=== PATIENT | female | born 1975 | race Caucasian/White ===

== ENCOUNTER 2020-05-12 07:34 | Outpatient (CLI) | payer OTHER, SELFPAY ==
--- NOTE | ~2020-05-12 | US_ITS ---
EXAMINATION: US right upper quadrant EXAM DATE: 05/12/2020 08:02 INDICATION: Abdominal fullness. Right upper quadrant pain. TECHNIQUE: Multiple grayscale and Doppler images of the abdomen right upper quadrant were obtained (b y a technologist who performed the scan) and subsequently reviewed. Comparison is made to prior exami nation from 02/15/2010. FINDINGS: The pancreatic head and body are normal in appearance. The pancreatic tail is not visualized. There is echogenic liver parenchyma, hepatic steatosis. There are no focal liver lesions identified. Th ere is no evidence of intrahepatic biliary duct dilation. Portal venous flow was seen in the hepatop edal, normal direction and has normal Doppler waveform. No right-sided hydronephrosis. Common bile duct measures 4 mm, which is normal. The gallbladder fossa is unremarkable. IMPRESSION: Hepatic steatosis. Reviewed, dictated and finalized at location A. IMPRESSION: Hepatic steatosis.
== END 2020-05-12 07:35 | disposition home or self-care (01) ==
LOC: ANHIMG 07:36
PROVIDERS: PCP Internal Medicine; Visit Provider Internal Medicine
DX: R19.8 Other specified symptoms and signs involving the digestive system and abdomen (principal); K76.0 Fatty (change of) liver, not elsewhere classified
CPT/HCPCS: 76705

== ENCOUNTER 2020-07-30 08:18 | Outpatient (NON) | payer OTHER, SELFPAY ==
[2020-07-30 23:24] LABS: SARS-CoV-2 RNA PCR Negative
== END 2020-07-30 08:19 ==
LOC: ANHCOVIDDT 08:19
PROVIDERS: PCP Internal Medicine; Visit Provider Internal Medicine
DX: Z20.828 Contact with and (suspected) exposure to other viral communicable diseases (principal); R09.89 Other specified symptoms and signs involving the circulatory and respiratory systems
CPT/HCPCS: 87635; C9803; U0003

== ENCOUNTER 2021-06-04 01:57 | Day surgery (SDC) | payer OTHER, SELFPAY ==
[2021-05-24 15:21] VITALS: BMI 40.6
[2021-06-04 08:21] VITALS: BP 127/65; PULSE 67; RESP 18; TEMP 36.1; O2SAT 99
--- NOTE | 2021-06-04 08:30 | WPDANESEPPF ---
Anes - Initial Pre Proc Eval Procedure: Operation Date: 06/04/21 09:00 Proposed Procedures p Screening Colonoscopy - Cameron Bob MD Date/Time: 06/04/21 08:30 Surgeon: Cameron Bob MD Pre Op Diagnosis: family hx of colon ca Patient Data Age: 46 Gender: F Height: 1.6 m Weight: 104 kg Last Vital Signs Temp 97 F L 06/04/21 08:21 Pulse 67 06/04/21 08:21 Resp 18 06/04/21 08:21 BP 127/65 06/04/21 08:21 Pulse Ox 99 06/04/21 08:21 Allergies Allergy/AdvReac Type Severity Reaction Status Date / Time adhesive Allergy Mild Rash Verified 06/04/21 08:19 Home Medications Medication Instructions Recorded Confirmed Type levocetirizine 5 mg tablet 5 mg PO DAILY 11/12/19 05/24/21 History venlafaxine 150 mg 150 mg PO DAILY #30 cap 01/28/21 05/24/21 Rx capsule,extended release 24 hr zolpidem 10 mg tablet 10 mg PO .QHS PRN #30 tablet 05/14/21 05/24/21 Rx diltiazem HCl 240 mg See Rx Instructions .ROUTE 05/17/21 05/24/21 Rx capsule,extended release 24 hr .COMPLEX #90 cap Adult One Daily Multivitamin 1 tab-cap PO DAILY 05/24/21 05/24/21 History cyanocobalamin (vitamin B-12) 1,000 mcg PO DAILY 05/24/21 05/24/21 History [Vitamin B-12] topiramate [Topamax] 50 mg PO HS 05/24/21 05/24/21 History sod picosulf-mag ox-citric ac 160 ml PO DAILY #1 dose pk 05/25/21 Rx [Clenpiq] Patient hx anesthesia problems: none Family hx anesthesia problems: none Results Review: All pre-operative results and documents have been reviewed as part of the pre-operative evaluation. [facility] Past Medical History Medical History (Updated 05/14/21 @ 15:20 by Johnson Lock DO) Allergic rhinitis FH: cholecystectomy Hypertension Obesity Surgical History Surgical History (Updated 12/09/20 @ 16:37 by Johnson Lock DO) History of bilateral breast reduction surgery Hx of LASIK Family History Family History Father Carcinoma of colon Mother Family history of malignant neoplasm of breast in first degree relative Social History Social History (Updated 05/14/21 @ 14:46 by Katrina Minor [facility]) Smoking status: Never smoker Second hand tobacco smoke exposure: No Alcohol intake: never Alcohol use details: occational Substance use: never Substance use type: does not use Living arrangements: with family Spiritual care concerns: No Anes - Eval Final PreProcedure Day of Procedure 06/04/21 08:30 Patient weight: morbidly obese Heart: regular rate and rhythm Lungs: clear to auscultation Airway: Mallampati scale class II Neurological: alert and oriented Last oral intake: >/= 8 hours ASA classification: III Emergent: no Anesthetic plan: proceed Anesthesia type and monitoring: general GIVS and standard monitoring Results Review: All pre-operative results and documents have been reviewed as part of the pre-operative evaluation. Informed Consent: The patient's anesthetic plan and its attendant risks and benefits were discussed with the patient/family/POA. Questions were solicited and answers provided to the satisfaction of the patient/family/POA.
[2021-06-04] MEDS: LACTATED RINGERS 1,000 ML 150 ML IV CONT (08:37)
--- NOTE | 2021-06-04 08:53 | PM.HPGS ---
History of Present Illness History of Present Illness Consent: Risks, benefits, and alternatives have been discussed and questions answered. Patient agrees to proceed with procedure. Chief complaint: family hx of colon ca Narrative: Katrina Jenkins is a 46 year old female here for first screening colonoscopy, father had colon ca Review of Systems Constitutional: Constitutional: Denies headache(s) and Denies weakness Eyes: Eyes: Denies blurry vision ENT: Reports Normal hearing present, Denies headache(s) and Denies neck pain Cardiovascular: Cardiovascular: Denies chest pain and Denies dyspnea Respiratory: Respiratory: Denies dyspnea Gastrointestinal: Gastrointestinal: Reports no additional gastrointestinal complaints Genitourinary: Genitourinary: Denies dysuria Musculoskeletal: Musculoskeletal: Denies neck pain Integumentary/Breasts: Skin/Breast: Denies dry skin Neurologic: Reports Normal hearing present, Denies headache(s) and Denies weakness Psychiatric: Psychiatric: Denies anxiety Endocrine: Endocrine: Denies change in body appearance Hematologic/Lymphatic: Hematologic/Lymphatic: Denies easy bleeding Allergic/Immunologic: Allergic/Immunologic: Denies urticaria PMFSH Past Medical History Medical History (Updated 05/14/21 @ 15:20 by Johnson Lock DO) Allergic rhinitis FH: cholecystectomy Hypertension Obesity Surgical History Surgical History (Updated 12/09/20 @ 16:37 by Johnson Lock DO) History of bilateral breast reduction surgery Hx of LASIK Family History Family History Father Carcinoma of colon Mother Family history of malignant neoplasm of breast in first degree relative Social History Social History (Updated 05/14/21 @ 14:46 by Katrina Minor [facility]) Smoking status: Never smoker Second hand tobacco smoke exposure: No Alcohol intake: never Alcohol use details: occational Substance use: never Substance use type: does not use Living arrangements: with family Spiritual care concerns: No Meds Home Medications and Allergies Home Medications Medication Instructions Recorded Confirmed Type levocetirizine 5 mg tablet 5 mg PO DAILY 11/12/19 05/24/21 History venlafaxine 150 mg 150 mg PO DAILY #30 cap 01/28/21 05/24/21 Rx capsule,extended release 24 hr zolpidem 10 mg tablet 10 mg PO .QHS PRN #30 tablet 05/14/21 05/24/21 Rx diltiazem HCl 240 mg See Rx Instructions .ROUTE 05/17/21 05/24/21 Rx capsule,extended release 24 hr .COMPLEX #90 cap Adult One Daily Multivitamin 1 tab-cap PO DAILY 05/24/21 05/24/21 History cyanocobalamin (vitamin B-12) 1,000 mcg PO DAILY 05/24/21 05/24/21 History [Vitamin B-12] topiramate [Topamax] 50 mg PO HS 05/24/21 05/24/21 History sod picosulf-mag ox-citric ac 160 ml PO DAILY #1 dose pk 05/25/21 Rx [Clenpiq] Allergies Allergy/AdvReac Type Severity Reaction Status Date / Time adhesive Allergy Mild Rash Verified 06/04/21 08:19 Vital Signs Vital Signs - 24 hr 06/04/21 08:21 Temperature 97 F L Pulse Rate 67 Respiratory Rate 18 Blood Pressure 127/65 Pulse Oximetry 99 Exam Const: General: comfortable and no acute distress HENMT: General nose exam: Normal nares present Eyes: General: appearance normal, both eyes and all related structures Neck: Neck: no JVD Resp: Auscultation: clear to auscultation bilaterally Cardio: Rate: regular rate Rhythm: regular rhythm GI: Inspection: non-distended GI Palp: Yes Soft to palpation Skin: General skin exam: normal color Neuro: General: gait normal Speech: normal speech Extrem: General: normal to inspection Psych: Mental Status: mental status grossly normal Assessment and Plan Assessment and plan (1) Family history of colon cancer in father: Code(s): Z80.0 - Family history of malignant neoplasm of digestive organs Status: Acute Assessment and Plan: colonosc
[2021-06-04 09:13] VITALS: BP 118/63; PULSE 72; RESP 20; O2SAT 99
[2021-06-04 09:23] VITALS: BP 106/62; PULSE 60; RESP 18; O2SAT 100
[2021-06-04 09:33] VITALS: BP 118/83; PULSE 61; RESP 26; O2SAT 97
== END 2021-06-04 09:33 | disposition home or self-care (01) ==
PROVIDERS: PCP Internal Medicine; Visit Provider Internal Medicine Gastroenterology
PROC: 0DJD8ZZ Inspection of Lower Intestinal Tract, Via Natural or Artificial Opening Endoscopic (ICD-10-PCS; CPT 45378; principal; 2021-06-04 09:00)
DX: Z12.11 Encounter for screening for malignant neoplasm of colon (principal); K64.8 Other hemorrhoids; Z80.0 Family history of malignant neoplasm of digestive organs; I10 Essential (primary) hypertension; E66.01 Morbid (severe) obesity due to excess calories; Z68.41 Body mass index [BMI] 40.0-44.9, adult
CPT/HCPCS: 45378; J2704; J7120

== ENCOUNTER 2024-04-08 07:56 | Outpatient (CLI) | payer OTHER, SELFPAY ==
--- NOTE | 2024-04-08 08:07 | EST_ITS ---
Patient Info Name: Katrina Jenkins Age: 48 years : 1975 Gender: Female Ht: 63 in Wt: 160 lbs BSA: 1.82 m2 HR: 65 bpm BP: 108 / 72 mmHg Heart Rhythm: Sinus Rhythm Exam Date: 04/08/2024 8:18 AM Exam Location: [facility] Patient Status: Outpatient Admit Date: 04/08/2024 Staff Ordering Physician: Juanita Jara APRN Attending Provider: Juanita Jara APRN Exercise Technologist: Keri Álvarez CT Exercise Physician: Edilberto Reed DO Exam Type: CA stress test treadmill Study Info Indications R07.9 - Chest pain, unspecified A treadmill exercise stress test was performed. Summary 1. 1. Negative Isaac exercise stress test for ischemic ST changes by ECG criteria. 2. 2. Good functional capacity, achieving 8.9 METs of workload. 3. 3. Appropriate HR response to exercise. 4. 4. Appropriate HR recovery at 1 minute post exercise. 5. 5. No imaging with stress testing. 6. 6. Patient informed of the above results. Protocol: Isaac Stress ECG Details Stage: REST Duration (min): 0 min : 59 sec Speed (mph): 0.0 Grade (%): 0 HR (bpm): 68 SBP (mmHg): 108 DBP (mmHg): 72 METS: --- Stage: REST Duration (min): 7 min : 32 sec Speed (mph): 0.0 Grade (%): 0 HR (bpm): 85 SBP (mmHg): 108 DBP (mmHg): 72 METS: --- Stage: STAGE 1 Duration (min): 1 min : 0 sec Speed (mph): 1.7 Grade (%): 10 HR (bpm): 104 SBP (mmHg): 108 DBP (mmHg): 72 METS: --- Stage: STAGE 1 Duration (min): 2 min : 0 sec Speed (mph): 1.7 Grade (%): 10 HR (bpm): 119 SBP (mmHg): 108 DBP (mmHg): 72 METS: --- Stage: STAGE 1 Duration (min): 3 min : 0 sec Speed (mph): 1.7 Grade (%): 10 HR (bpm): 119 SBP (mmHg): 99 DBP (mmHg): 52 METS: --- Stage: STAGE 2 Duration (min): 1 min : 0 sec Speed (mph): 2.5 Grade (%): 12 HR (bpm): 137 SBP (mmHg): 93 DBP (mmHg): 72 METS: --- Stage: STAGE 2 Duration (min): 2 min : 0 sec Speed (mph): 2.5 Grade (%): 12 HR (bpm): 144 SBP (mmHg): 118 DBP (mmHg): 72 METS: --- Stage: STAGE 2 Duration (min): 3 min : 0 sec Speed (mph): 2.5 Grade (%): 12 HR (bpm): 146 SBP (mmHg): 118 DBP (mmHg): 72 METS: --- Stage: STAGE 3 Duration (min): 1 min : 0 sec Speed (mph): 3.4 Grade (%): 14 HR (bpm): 152 SBP (mmHg): 118 DBP (mmHg): 72 METS: --- Stage: STAGE 3 Duration (min): 1 min : 0 sec Speed (mph): 3.4 Grade (%): 14 HR (bpm): 152 SBP (mmHg): 118 DBP (mmHg): 72 METS: --- Stage: RECOVERY Duration (min): 0 min : 59 sec Speed (mph): 0.0 Grade (%): 0 HR (bpm): 114 SBP (mmHg): 118 DBP (mmHg): 72 METS: --- Stage: RECOVERY Duration (min): 1 min : 50 sec Speed (mph): 0.0 Grade (%): 0 HR (bpm): 87 SBP (mmHg): 159 DBP (mmHg): 76 METS: --- Rest HR: 85 bpm Peak HR: 152 bpm Rest Sys BP: 108 mmHg Peak Sys BP: 159 mmHg Max Pred HR: 172 bpm % Max Pred HR: 88 % Target HR: 146 bpm Max RPP: 24,1
== END 2024-04-08 07:57 | disposition home or self-care (01) ==
LOC: ANHCARD 07:57
PROVIDERS: PCP Nurse Practitioner Family; Visit Provider Nurse Practitioner Family
DX: K21.9 Gastro-esophageal reflux disease without esophagitis (principal); R07.9 Chest pain, unspecified
CPT/HCPCS: 93017